=== PATIENT | female | born 1980 ===

== ENCOUNTER 2016-06-25 09:36 | Emergency (ER) | payer SELFPAY ==
[2016-06-25 10:11] VITALS: RESP 20; O2SAT 98
--- NOTE | 2016-06-25 10:41 | ED PDOC ---
HPI: Back Time Seen by Provider: 06/25/16 10:14 Chief Complaint (Nursing): Back Pain Chief Complaint (Provider): Low back pain for 5 days History Per: Patient History/Exam Limitations: no limitations Onset/Duration Of Symptoms: Days Current Symptoms Are (Timing): Still Present Full Body Front + Back: 1 - Pain Description Of Injury (Context): None Additional Complaint(s): No radiation of pain. No numbness/tingling. Pt denies fever/chills. No bladder or bowel incontinence. Pt took tylenol yesterday but it did not help. No similar pain in the past. No urinary symptoms. Past Medical History Reviewed: Historical Data, Nursing Documentation, Vital Signs Vital Signs: Last Vital Signs Temp 98.1 F 06/25/16 10:06 Pulse 70 06/25/16 10:06 Resp 20 06/25/16 10:06 BP 150/90 06/25/16 10:06 Pulse Ox 98 06/25/16 10:06 - Medical History PMH: Back Problems - Surgical History Surgical History: (x 1) - Family History Family History: States: Unknown Family Hx - Immunization History Hx Tetanus Toxoid Vaccination: No Hx Influenza Vaccination: No Hx Pneumococcal Vaccination: No - Home Medications Home Medications: Ambulatory Orders Medication Instructions Recorded Cyclobenzaprine [Flexeril] 10 mg PO Q8 PRN #15 tab 09/04/15 Ibuprofen [Motrin] 600 mg PO Q6 PRN #15 tab 09/04/15 Cyclobenzaprine [Cyclobenzaprine 10 mg PO BID #14 tab 12/23/15 HCl] Ibuprofen [Motrin] 400 mg PO Q6 #30 tab 12/23/15 Naproxen 1 tab PO BID PRN #14 tab 12/27/15 Cyclobenzaprine [Cyclobenzaprine 10 mg PO Q8H PRN #12 tab 06/25/16 HCl] Ibuprofen [Motrin Tab] 800 mg PO Q6H PRN #20 tab 06/25/16 - Allergies Allergies/Adverse Reactions: Allergies Allergy/AdvReac Type Severity Reaction Status Date / Time No Known Allergies Allergy Verified 06/25/16 10:06 Review of Systems ROS Statement: Except As Marked, All Systems Reviewed And Found Negative Respiratory: Negative for: Cough Musculoskeletal: Positive for: Back Pain Physical Exam - Reviewed Nursing Documentation Reviewed: Yes Vital Signs Reviewed: Yes - Physical Exam Appears: Positive for: Well, Non-toxic, No Acute Distress Head Exam: Positive for: ATRAUMATIC, NORMAL INSPECTION, NORMOCEPHALIC Skin: Positive for: Normal Color, Warm, DRY Eye Exam: Positive for: Normal appearance ENT: Positive for: Normal ENT Inspection Neck: Positive for: Normal, Painless ROM Cardiovascular/Chest: Positive for: Regular Rate, Rhythm Respiratory: Positive for: Normal Breath Sounds. Negative for: Accessory Muscle Use Gastrointestinal/Abdominal: Positive for: Normal Exam, Bowel Sounds, Soft. Negative for: Tenderness Back: Positive for: Normal Inspection, Vertebral Tenderness (T-spine and L- spine ). Negative for: Muscle Spasm Extremity: Positive for: Normal ROM. Negative for: Tenderness, Deformity, Swelling Neurologic/Psych: Positive for: Alert, Oriented - ECG O2 Sat by Pulse Oximetry: 98 Pulse Ox Interpretation: Normal Medical Decision Making Medical Decision Making: No acute finding on x-ray Pt reports feeling better. Disposition - Clinical Impression Clinical Impression: Back pain - Patient ED Disposition Is Patient to be Admitted: No Counseled Patient/Family Regarding: Diagnosis, Need For Followup, Rx Given - Disposition Referrals: [facility] [Outside] Disposition: Routine/Home Disposition Time: 13:45 Condition: FAIR Prescriptions: Cyclobenzaprine [Cyclobenzaprine HCl] 10 mg PO Q8H PRN #12 tab PRN Reason: Muscle Spasm Ibuprofen [Motrin Tab] 800 mg PO Q6H PRN #20 tab PRN Reason: Pain Instructions: Back Pain (ED) Forms: [facility] ED School/Work Excuse Print Language: EAST [place]
--- NOTE | 2016-06-25 13:05 | RAD ---
HISTORY: back pain, no trauma COMPARISON: No prior. FINDINGS: BONES: No acute compression fractures however there appear to be a few localized chronic appearing fish-mouth endplate deformities involving the T5, T4 and to a lesser degree T3 and T6 segments. There is a minor - subclinical levoscoliosis possibly due to side bending or muscle spasm. DISC SPACES: Mild multilevel degenerative spondylosis. Changes include mild disc space narrowing with endplate eburnation and small anterolateral osteophyte formation. SOFT TISSUES: Paraspinal soft tissues appear grossly unremarkable so far as can be seen. OTHER FINDINGS: None. IMPRESSION: No acute fractures however there does appear to be a few tiny chronic appearing fish-mouth localized endplate deformities involving the T5, T4 and to a lesser degree T3 and T6 segments. . Mild multilevel degenerative spondylosis.
--- NOTE | 2016-06-25 13:06 | RAD ---
PROCEDURE: Radiographs of the Lumbar Spine. HISTORY: pain, no trauma COMPARISON: No prior. FINDINGS: BONES: No acute compression fractures no retropulsed fragments. . Vertebral bodies exhibit relatively normal stature. Pedicles appear intact There is very subtle on subclinical dextroscoliosis possibly due to some side bending or muscle spasm DISC SPACES: There the minor posterior disc space narrowing seen at the L5-S1 level and to a lesser degree the remaining levels. Disc space heights are otherwise maintained. Very tiny early marginal anterior osteophyte formation also seen at a few levels the. OTHER FINDINGS: None. IMPRESSION: No acute fractures. Very minor multilevel degenerative spondylosis.
[2016-06-25 13:58] VITALS: BP 110/70; PULSE 74; TEMP 98
== END 2016-06-25 13:58 | disposition home or self-care (01) ==
LOC: H.ER 09:36
DX: M54.5 Low back pain (principal)

== ENCOUNTER 2016-08-30 13:21 | Emergency (ER) | payer SELFPAY ==
[2016-08-30 13:31] VITALS: BP 130/91; PULSE 73; RESP 18; TEMP 98.3; O2SAT 100
--- NOTE | 2016-08-30 13:40 | ED PDOC ---
HPI: Abdomen Time Seen by Provider: 08/30/16 13:34 Chief Complaint (Nursing): Abdominal Pain History Per: Patient (Right flank and RUQ abd pain x 2 days. Denies NVD. No fever. No urinary sxs.) Onset/Duration Of Symptoms: Days (2) Current Symptoms Are (Timing): Intermittent Episodes Severity: Mild Pain Scale Rating Of: 3 Location Of Pain/Discomfort: RUQ Quality Of Discomfort: Cramping Associated Symptoms: denies: Fever, Vomiting, Urinary Symptoms Exacerbating Factors: None Alleviating Factors: None Past Medical History Vital Signs: Last Vital Signs Temp 98.3 F 08/30/16 13:28 Pulse 73 08/30/16 13:28 Resp 18 08/30/16 13:28 BP 130/91 H 08/30/16 13:28 Pulse Ox 100 08/30/16 13:40 - Medical History PMH: Back Problems - Surgical History Surgical History: (x 1) - Family History Family History: States: Unknown Family Hx - Immunization History Hx Tetanus Toxoid Vaccination: No Hx Influenza Vaccination: No Hx Pneumococcal Vaccination: No - Home Medications Home Medications: Ambulatory Orders Medication Instructions Recorded Cyclobenzaprine [Flexeril] 10 mg PO Q8 PRN #15 tab 09/04/15 Ibuprofen [Motrin] 600 mg PO Q6 PRN #15 tab 09/04/15 Cyclobenzaprine [Cyclobenzaprine 10 mg PO BID #14 tab 12/23/15 HCl] Ibuprofen [Motrin] 400 mg PO Q6 #30 tab 12/23/15 Naproxen 1 tab PO BID PRN #14 tab 12/27/15 Cyclobenzaprine [Cyclobenzaprine 10 mg PO Q8H PRN #12 tab 06/25/16 HCl] Ibuprofen [Motrin Tab] 800 mg PO Q6H PRN #20 tab 06/25/16 Famotidine [Pepcid] 20 mg PO Q12 #20 tab 08/30/16 - Allergies Allergies/Adverse Reactions: Allergies Allergy/AdvReac Type Severity Reaction Status Date / Time No Known Allergies Allergy Verified 08/30/16 13:27 Review of Systems ROS Statement: Except As Marked, All Systems Reviewed And Found Negative Constitutional: Negative for: Fever Gastrointestinal: Positive for: Abdominal Pain. Negative for: Nausea, Vomiting , Diarrhea Genitourinary Female: Negative for: Dysuria, Frequency Musculoskeletal: Positive for: Back Pain Physical Exam - Reviewed Nursing Documentation Reviewed: Yes Vital Signs Reviewed: Yes - Physical Exam Appears: Positive for: Non-toxic, No Acute Distress Head Exam: Positive for: ATRAUMATIC, NORMAL INSPECTION, NORMOCEPHALIC Skin: Positive for: Normal Color, Warm, DRY Eye Exam: Positive for: EOMI, Normal appearance, PERRL ENT: Positive for: Normal ENT Inspection Neck: Positive for: Normal, Painless ROM Cardiovascular/Chest: Positive for: Regular Rate, Rhythm Respiratory: Positive for: CNT, Normal Breath Sounds Gastrointestinal/Abdominal: Positive for: Bowel Sounds, Soft, Tenderness (RUQ and right flank area) Back: Positive for: Normal Inspection Extremity: Positive for: Normal ROM Neurologic/Psych: Positive for: Alert, Oriented - Laboratory Results Result Diagrams: 08/30/16 13:45 08/30/16 13:45 - ECG O2 Sat by Pulse Oximetry: 100 Disposition - Clinical Impression Clinical Impression: Gastritis - Patient ED Disposition Is Patient to be Admitted: No Counseled Patient/Family Regarding: Studies Performed, Diagnosis, Need For Followup, Rx Given - Disposition Referrals: [facility] [Outside] Disposition: Routine/Home Disposition Time: 15:19 Condition: FAIR Prescriptions: Famotidine [Pepcid] 20 mg PO Q12 #20 tab Instructions: Gastritis (ED)
[2016-08-30 13:58] LABS: BASO # 0.1 K/uL (0.0-0.2); BASO % 0.7 % (0.0-2.0); EOS # 0.1 K/uL (0.0-0.7); EOS % 1.4 % (0.0-4.0); HEMATOCRIT 39.1 % (34.0-47.0); LYMPH # 2.4 K/uL (1.0-4.3); LYMPH % 28.2 % (20.0-40.0); MEAN CELL VOLUME 88.1 fl (81.0-99.0); MEAN CORPUSCULAR HEMOGLOBIN 29.6 pg (27.0-31.0); MEAN CORPUSCULAR HGB CONC 33.6 g/dL (33.0-37.0); MEAN PLATELET VOLUME 8.3 fl (7.2-11.7); MONO # 0.6 K/uL (0.0-0.8); MONO % 7.5 % (0.0-10.0); NEUT # 5.3 K/uL (1.8-7.0); NEUT % 62.2 % (50.0-75.0); NRBC % 0.1 % (0.0-0.0); RED CELL DISTRIBUTION WIDTH 13.6 % (11.5-14.5); WHITE BLOOD COUNT 8.5 K/uL (4.8-10.8)
[2016-08-30 14:13] LABS: ALB/GLOB RATIO 1.2 (1.0-2.1); ALKALINE PHOSPHATASE 95 U/L (38-126); ALT/SGPT 26 U/L (9-52); AST/SGOT 24 U/L (14-36); BILIRUBIN,TOTAL 0.3 mg/dl (0.2-1.3); CALCIUM 9.2 mg/dL (8.4-10.2); CARBON DIOXIDE 24 mmol/L (22-30); CHLORIDE 104 mmol/L (98-107); GFR AFRICAN-AMERICAN > 60; GLUCOSE,RANDOM 87 mg/dL (65-105); POTASSIUM 4.3 MMOL/L (3.6-5.0); SODIUM 139 mmol/l (132-148); TOTAL PROTEIN 8.1 G/DL (6.3-8.2)
[2016-08-30 14:15] LABS: BLOOD UREA NITROGEN 14 mg/dl (7-17)
--- NOTE | 2016-08-30 14:41 | US ---
HISTORY: RUQ pain COMPARISON: None. TECHNIQUE: Sonographic evaluation of the right upper quadrant of the abdomen. FINDINGS: LIVER: Measures 15.4 cm in length. Normal echogenicity of the liver parenchyma. No mass. No intrahepatic bile duct dilatation. GALLBLADDER: Unremarkable. No gallstones. COMMON BILE DUCT: Measures 4 mm. No stones. No dilatation. PANCREAS: Distal pancreatic body and tail are obscured. The visualized pancreas is unremarkable. RIGHT KIDNEY: Measures 11.8 cm in length. Normal cortical thickness and echogenicity. Upper pole cortical cyst, 1.4 x 1.7 x 1.8 cm associated with punctate calcification. AORTA: No aneurysmal dilatation. IVC: Unremarkable. OTHER FINDINGS: None . IMPRESSION: No evidence of cholelithiasis or cholecystitis. 1.8 cm right upper pole renal cortical cyst with punctate mural calcification.
== END 2016-08-30 15:51 | disposition home or self-care (01) ==
LOC: H.ER 13:21
DX: K29.70 Gastritis, unspecified, without bleeding (principal)

== ENCOUNTER 2016-09-16 11:19 | Emergency (ER) | payer OTHER, SELFPAY ==
[2016-09-16 11:26] VITALS: BMI 32.1
[2016-09-16 11:29] VITALS: BP 114/59; PULSE 73; RESP 18; TEMP 97.9; O2SAT 98
--- NOTE | 2016-09-16 12:11 | ED PDOC ---
HPI: Back Time Seen by Provider: 09/16/16 11:37 Chief Complaint (Nursing): Back Pain Additional Complaint(s): 35F c/o atraumatic right side low back pain for 3 days worse w movement. took ibuprofen and this did help. here for similar sx a couple months ago. denies any red flag sx- fever, urinary difficulty/incont, saddle anesth, weakness/ numbness, IVDA. she denies any other pmh, no meds. Past Medical History Vital Signs: Last Vital Signs Temp 97.9 F 09/16/16 11:27 Pulse 73 09/16/16 11:27 Resp 18 09/16/16 11:27 BP 114/59 L 09/16/16 11:27 Pulse Ox 98 09/16/16 11:27 - Medical History PMH: Back Problems - Surgical History Surgical History: (x 1) - Family History Family History: States: Other - Immunization History Hx Tetanus Toxoid Vaccination: No Hx Influenza Vaccination: No Hx Pneumococcal Vaccination: No - Home Medications Home Medications: Ambulatory Orders Medication Instructions Recorded Cyclobenzaprine [Flexeril] 10 mg PO Q8 PRN #15 tab 09/04/15 Ibuprofen [Motrin] 600 mg PO Q6 PRN #15 tab 09/04/15 Cyclobenzaprine [Cyclobenzaprine 10 mg PO BID #14 tab 12/23/15 HCl] Ibuprofen [Motrin] 400 mg PO Q6 #30 tab 12/23/15 Naproxen 1 tab PO BID PRN #14 tab 12/27/15 Cyclobenzaprine [Cyclobenzaprine 10 mg PO Q8H PRN #12 tab 06/25/16 HCl] Ibuprofen [Motrin Tab] 800 mg PO Q6H PRN #20 tab 06/25/16 Famotidine [Pepcid] 20 mg PO Q12 #20 tab 08/30/16 Acetaminophen [Pain Reliever] 650 mg PO Q6H PRN #20 tablet 09/16/16 - Allergies Allergies/Adverse Reactions: Allergies Allergy/AdvReac Type Severity Reaction Status Date / Time No Known Allergies Allergy Verified 08/30/16 13:27 Review of Systems Constitutional: Negative for: Fever, Chills Cardiovascular: Negative for: Chest Pain Respiratory: Negative for: Cough, Shortness of Breath Gastrointestinal: Negative for: Nausea, Vomiting, Abdominal Pain Genitourinary Female: Negative for: Dysuria, Incontinence Musculoskeletal: Positive for: Back Pain Neurological: Negative for: Weakness, Numbness Physical Exam - Physical Exam Appears: Positive for: Well, Non-toxic Skin: Positive for: Warm, Dry Cardiovascular/Chest: Positive for: Regular Rate, Rhythm Respiratory: Negative for: Accessory Muscle Use Pulses-Dorsalis Pedis (L): 2+ Pulses-Dorsalis Pedis (R): 2+ Gastrointestinal/Abdominal: Positive for: Soft. Negative for: Tenderness Back: Positive for: Normal Inspection, Other (right lumbar paraspinous mm ttp). Negative for: Vertebral Tenderness Extremity: Positive for: Normal ROM. Negative for: Swelling Neurologic/Psych: Positive for: Alert, Oriented, Other (nl strenght in b/l hip/ knee/ankle flex/ext and EHL. DTR symmetric. ). Negative for: Motor/Sensory Deficits - ECG O2 Sat by Pulse Oximetry: 98 Medical Decision Making Medical Decision Making: I informed the pt of her positive preg test and need for OBGYN follow up Disposition - Clinical Impression Clinical Impression: Low back strain, - Disposition Disposition Time: 12:20 Condition: GOOD Additional Instructions: Please follow up with your primary doctor and also your OBGYN regarding your . Return to the ER for any worsening symptoms, problems with urination , fever, numbness, weakness, or for any other concerns. Prescriptions: Acetaminophen [Pain Reliever] 650 mg PO Q6H PRN #20 tablet PRN Reason: Pain, Moderate (4-7) Instructions: Acute Low Back Pain (ED), Back Exercises (ED) Print Language: JAPANESE
== END 2016-09-16 13:14 | disposition home or self-care (01) ==
LOC: H.ER 11:19
DX: M54.5 Low back pain (principal); Z33.1 Pregnant state, incidental

== ENCOUNTER 2016-12-01 10:02 | Emergency (ER) | payer MEDICAID, OTHER ==
--- NOTE | 2016-12-01 10:27 | ED PDOC ---
HPI: Back Time Seen by Provider: 12/01/16 10:06 Chief Complaint (Nursing): Back Pain Chief Complaint (Provider): Back Pain, History Per: Patient History/Exam Limitations: no limitations Onset/Duration Of Symptoms: Days (x2) Current Symptoms Are (Timing): Still Present Additional Complaint(s): Mena is a 36 y/o female who presents to the ED complaining of non-radiating left-sided low back pain for 2 days. No dysuria or fever. Patient is approximately 17 weeks . Denies associated abdominal pain, contractions , vaginal bleeding, and discharge. PMD: Unknown Past Medical History Reviewed: Historical Data, Nursing Documentation, Vital Signs Vital Signs: Last Vital Signs Temp 97 F L 12/01/16 10:18 Pulse 96 H 12/01/16 10:18 Resp 19 12/01/16 10:18 BP 123/66 12/01/16 10:18 Pulse Ox 100 12/01/16 10:18 - Medical History PMH: Back Problems - Surgical History Surgical History: (x 1) - Family History Family History: States: Unknown Family Hx - Immunization History Hx Tetanus Toxoid Vaccination: No Hx Influenza Vaccination: No Hx Pneumococcal Vaccination: No - Home Medications Home Medications: Ambulatory Orders Medication Instructions Recorded Cyclobenzaprine [Flexeril] 10 mg PO Q8 PRN #15 tab 09/04/15 Ibuprofen [Motrin] 600 mg PO Q6 PRN #15 tab 09/04/15 Cyclobenzaprine [Cyclobenzaprine 10 mg PO BID #14 tab 12/23/15 HCl] Ibuprofen [Motrin] 400 mg PO Q6 #30 tab 12/23/15 Naproxen 1 tab PO BID PRN #14 tab 12/27/15 Cyclobenzaprine [Cyclobenzaprine 10 mg PO Q8H PRN #12 tab 06/25/16 HCl] Ibuprofen [Motrin Tab] 800 mg PO Q6H PRN #20 tab 06/25/16 Famotidine [Pepcid] 20 mg PO Q12 #20 tab 08/30/16 Acetaminophen [Pain Reliever] 650 mg PO Q6H PRN #20 tablet 09/16/16 Acetaminophen [Acetaminophen Extra 1,000 mg PO Q8 #20 tablet 12/01/16 Strength] - Allergies Allergies/Adverse Reactions: Allergies Allergy/AdvReac Type Severity Reaction Status Date / Time No Known Allergies Allergy Verified 08/30/16 13:27 Review of Systems ROS Statement: Except As Marked, All Systems Reviewed And Found Negative Constitutional: Negative for: Fever Gastrointestinal: Negative for: Abdominal Pain (or contractions) Genitourinary Female: Negative for: Dysuria, Vaginal Discharge, Vaginal Bleeding Musculoskeletal: Positive for: Back Pain (left, lower) Physical Exam - Reviewed Nursing Documentation Reviewed: Yes Vital Signs Reviewed: Yes - Physical Exam Appears: Positive for: Well, Non-toxic, No Acute Distress Head Exam: Positive for: ATRAUMATIC, NORMAL INSPECTION, NORMOCEPHALIC Skin: Positive for: Normal Color, Warm, Dry Eye Exam: Positive for: EOMI, Normal appearance, PERRL Neck: Positive for: Normal, Painless ROM, Supple Cardiovascular/Chest: Positive for: Regular Rate, Rhythm. Negative for: Murmur Respiratory: Positive for: Normal Breath Sounds. Negative for: Respiratory Distress Gastrointestinal/Abdominal: Positive for: Soft (Gravid). Negative for: Tenderness Back: Positive for: Other (Left lower back tenderness). Negative for: Vertebral Tenderness Extremity: Positive for: Normal ROM, Capillary Refill (< 2 sec). Negative for: Pedal Edema, Deformity Neurologic/Psych: Positive for: Alert, Oriented. Negative for: Motor/Sensory Deficits - Laboratory Results Result Diagrams: 12/01/16 10:45 - ECG O2 Sat by Pulse Oximetry: 100 (RA) Pulse Ox Interpretation: Normal Medical Decision Making Medical Decision Making: Time: 10:17 Initial Plan: --CBC w/ differential --Beta HCG quantitative --Urine dipstick --Urine culture --Given Tylenol PO --Pending renal US & US OB limited Time: 10:50 --[place] [address].00 Time: 13:26 Renal US: FINDINGS: RIGHT KIDNEY: Measures: 5.8 x 7.1 x 12.2 cm. Normal in size, contour and echogenicity. No stone, solid mass lesion or hydronephrosis visualized. LEFT KIDNEY: Measures: 5.8 x 6 x 12.6 cm. Normal in size, contour and echogenicity. No stone, solid mass lesion or hydronephrosis visualized. OTHER FINDINGS: None. IMPRESSION: Unremarkable renal sonogram. Time: 13:31 US : FINDINGS: Variable presentation. Posterior Placenta. No evidence of abruption or previa Gestational age derived from LMP 17 weeks THEODORE based on LMP 05/11/2017. Gestational age derived from the following biometric parameters 18 weeks . THEODORE based on biometry 05/04/2017. Biparietal diameter 4.05 cm Head [id number] cm Abdominal circumference 12.85 cm Femur length 2.59 cm Estimated weight 223.91 g Calculated cardiac rate 139 beats per min. Closed cervix measuring 4.08 cm IMPRESSION: Eighteen weeks live intrauterine gestation. Gestational concordance documented. No acute findings related to/accounting for the clinical presentation. --Patient reports marked improvement in symptoms Scribe Attestation: Documented by Iqra Sweeney, acting as a scribe for See Schroeder MD Provider Scribe Attestation: All medical record entries made by the Scribe were at my direction and personally dictated by me. I have reviewed the chart and agree that the record accurately reflects my personal performance of the history, physical exam, medical decision making, and the department course for this patient. I have also personally directed, reviewed, and agree with the discharge instructions and disposition. Disposition - Clinical Impression Clinical Impression: Low back strain - Patient ED Disposition Is Patient to be Admitted: No - Disposition [facility]errals[facility] [[facility]] Disposition: Routine/Home Disposition Time: 13:55 Condition: FAIR Prescriptions: Acetaminophen [Acetaminophen Extra Strength] 1,000 mg PO Q8 #20 tablet Instructions: Back Pain (ED) Forms: [employer] (Romansh)
[2016-12-01 10:30] VITALS: TEMP 97; O2SAT 100
[2016-12-01 11:00] LABS: BASO % 0.3 % (0.0-2.0); EOS # 0.2 K/uL (0.0-0.7); EOS % 1.6 % (0.0-4.0); HEMATOCRIT 37.1 % (34.0-47.0); LYMPH # 1.9 K/uL (1.0-4.3); LYMPH % 14.4 % (20.0-40.0); MEAN CORPUSCULAR HEMOGLOBIN 29.7 pg (27.0-31.0); MEAN CORPUSCULAR HGB CONC 33.4 g/dL (33.0-37.0); MEAN PLATELET VOLUME 8.1 fl (7.2-11.7); MONO % 7.5 % (0.0-10.0); NEUT # 9.8 K/uL (1.8-7.0); NEUT % 76.2 % (50.0-75.0); RED CELL DISTRIBUTION WIDTH 13.2 % (11.5-14.5); WHITE BLOOD COUNT 12.9 K/uL (4.8-10.8)
--- NOTE | 2016-12-01 13:27 | US ---
PROCEDURE: Ultrasound of the Kidneys HISTORY: left flank pain COMPARISON: None available. TECHNIQUE: Sonogram of the kidneys. FINDINGS: RIGHT KIDNEY: Measures: 5.8 x 7.1 x 12.2 cm. Normal in size, contour and echogenicity. No stone, solid mass lesion or hydronephrosis visualized. LEFT KIDNEY: Measures: 5.8 x 6 x 12.6 cm. Normal in size, contour and echogenicity. No stone, solid mass lesion or hydronephrosis visualized. OTHER FINDINGS: None. IMPRESSION: Unremarkable renal sonogram.
--- NOTE | 2016-12-01 13:37 | US ---
PROCEDURE: ultrasound HISTORY: LEFT FLANK PAIN COMPARISON: December 01, 2016. Renal ultrasound reported separately.. TECHNIQUE: Standard protocol for this study/examination. FINDINGS: Variable presentation. Posterior Placenta. No evidence of abruption or previa Gestational age derived from LMP 17 weeks THEODORE based on LMP 05/11/2017. Gestational age derived from the following biometric parameters 18 weeks . THEODORE based on biometry 05/04/2017. Biparietal diameter 4.05 cm Head [id number] cm Abdominal circumference 12.85 cm Femur length 2.59 cm Estimated weight 223.91 g Calculated cardiac rate 139 beats per min. Closed cervix measuring 4.08 cm IMPRESSION: Eighteen weeks live intrauterine gestation. Gestational concordance documented. No acute findings related to/accounting for the clinical presentation.
[2016-12-01 14:13] VITALS: BP 120/70; PULSE 88; RESP 18
== END 2016-12-01 14:07 | disposition home or self-care (01) ==
LOC: H.ER 10:02
DX: M54.9 Dorsalgia, unspecified (principal); Z3A.18 18 weeks gestation of pregnancy; O26.892 Other specified pregnancy related conditions, second trimester

== ENCOUNTER 2017-04-03 15:50 | Emergency (ER) | payer MEDICAID ==
[2017-04-03 16:16] VITALS: BMI 38.5
[2017-04-03 18:10] LABS: SQUAMOUS EPITHIAL 2 /hpf (0-5); URINE BACTERIA OCC (<OCC); URINE BILIRUBIN NEGATIVE (NEGATIVE); URINE BLOOD NEGATIVE (NEGATIVE); URINE CLARITY CLOUDY (Clear); URINE COLOR YELLOW (YELLOW); URINE GLUCOSE (UA) NEG (Normal); URINE LEUKOCYTE ESTERASE NEG Leu/uL (Negative); URINE NITRATE NEGATIVE (NEGATIVE); URINE PROTEIN NEGATIVE (NEGATIVE); URINE UROBILINOGEN 0.2-1.0 mg/dL (0.2-1.0)
--- NOTE | 2017-04-03 18:29 | OBHP ---
Datetime: 04/03/2017 16:27 IP Adm Impression: , intrauterine ; No Active Labor IP Chief Complaint Other: pelvic pain IP Admit Plan: Observation/Evaluation; Discharge home Admit Comment, IP Provider: 36 yo IUP 36 weeks presents today c/o low abdominal pain since 3 days ago, pt also notice change in the urine color and urinary frequency in the last 2 days. no lof, ctx,VB, +FM. Denies nausea, vomiting, chest pain, sob no recent trauma or injury. PNC: [facility] PObH: NVD x2, x1 2010. PGynH: none PMH: none PSH: none FMH: denies Meds: vits NKDA. Denies tobacco,etoh or drugs use. VS: wnl MELISSA no acute distress CVS: normal s1, s2, no murmur Lungs: cta, no wheezing Abd: gravid Back: -CVAT No edema Pelvic: closed/0/-3 A/P: 36 yo IUP 36 weeks with low abd pain and urinary frequency. Observe UA wnl Discharge home Case discussed with Dr Green, OB manager transfusion hospitalist. Angelica Gonzalez PGY1 The patient was seen with the resident and I agree with the note Pelvic Type - PN: Adequate Extremities - PN: Normal Abdomen - PN: Normal Back - PN: Normal Breast - PN: Normal Lungs - PN: Normal Heart - PN: Normal Thyroid - PN: Normal Neurologic - PN: Normal HEENT - PN: Normal General - PN: Normal FHR - Baseline A Provider: 144 EGA AdmitDate IP: 35.4 Vital Signs Provider: Reviewed IP Chief Complaint: Other NICHD Variability Prov Fetus A: Moderate 6-25bpm NICHD Accel Fetus A IP Provider: [id number] FHR Category Provider Fetus A: Category I NICHD Decel Fetus A IP Provider: None Dilatation, Provider: 0 Effacement, Provider: 0 Station, Provider: -3 Genitourinary Exam: Normal DTRs - PN: Normal
[2017-04-06 00:30] VITALS: BP 97/53; PULSE 66; RESP 20; TEMP 97
== END 2017-04-03 18:19 | disposition home or self-care (01) ==
LOC: H.EROB2 15:50
DX: O26.93 Pregnancy related conditions, unspecified, third trimester (principal); R10.2 Pelvic and perineal pain; R35.0 Frequency of micturition; Z3A.36 36 weeks gestation of pregnancy; Z87.59 Personal history of other complications of pregnancy, childbirth and the puerperium

== ENCOUNTER 2017-04-24 01:06 | Inpatient (IN) | payer MEDICAID ==
[2017-04-24] MEDS: Lactated Ringer's 1,000 ML IV SCH ×4 (01:44→19:01)
[2017-04-24] MEDS ORDERED: ceFAZolin 2 GM in Sodium Chloride 0.9% 100 ML IVPB ONE (02:23)
[2017-04-24] MEDS ORDERED: Oxytocin 30 UNITS in Sodium Chloride 0.9% 500 ML IV ONE (02:29)
[2017-04-24 02:52] LABS: BASO % 0.2 % (0.0-2.0); EOS # 0.1 K/uL (0.0-0.7); EOS % 0.8 % (0.0-4.0); HEMOGLOBIN 12.7 g/dL (12.0-16.0); LYMPH # 2.1 K/uL (1.0-4.3); LYMPH % 13.9 % (20.0-40.0); MEAN CELL VOLUME 85.5 fl (81.0-99.0); MEAN CORPUSCULAR HEMOGLOBIN 28.4 pg (27.0-31.0); MEAN CORPUSCULAR HGB CONC 33.1 g/dL (33.0-37.0); MEAN PLATELET VOLUME 8.8 fl (7.2-11.7); MONO # 0.9 K/uL (0.0-0.8); MONO % 6.3 % (0.0-10.0); NEUT # 11.8 K/uL (1.8-7.0); NEUT % 78.8 % (50.0-75.0); RBC 4.48 Mil/uL (3.80-5.20); RED CELL DISTRIBUTION WIDTH 14.5 % (11.5-14.5)
[2017-04-24] MEDS ORDERED: Lactated Ringer's 1,000 ML IV SCH (03:00)
[2017-04-24] MEDS ORDERED: ceFAZolin IV 2 gm in Dextrose 2 GM/50 ML BAG IVPB ONE ×2 (04:29→06:30)
[2017-04-24] MEDS ORDERED: Morphine 1 mg/ml preservative-free Inj(Duramorph) ONE (04:51)
[2017-04-24] MEDS ORDERED: Phenylephrine 10 mg/ml Inj ONE (04:51)
[2017-04-24] MEDS ORDERED: ePHEDrine 50 mg/ml Inj ONE (05:09)
[2017-04-24] MEDS ORDERED: DiphenhydrAMINE 50 mg/ml Inj IVP PRN ×2 (05:47→09:05)
[2017-04-24] MEDS ORDERED: Oxycodone/Acetaminophen 5/325 mg Tab PO PRN (06:01)
--- NOTE | 2017-04-24 06:07 | OBADHP ---
Datetime: 04/24/2017 02:32 Admit Comment, IP Provider: 36 yo IUP 38.5 weeks presents c/o painful ctx since last night, no lof,VB, +FM. Denies nausea, vomiting, chest pain, sob no recent trauma or injury. Patient had a pr evious c/section and desire BTL. She is scheduled for 04/29/17. PNC: [facility] PObH: NVD x2, x1 2010. PGynH: none PMH: none PSH: none FMH: denies Meds: vits NKDA. Denies tobacco,etoh or drugs use. VS: wnl VE: /-2 FM: 140/mod rabia/15 x 15/cat I/no decel A/P: 36 yo IUP 38.5 wks, admitted for repeat c/section. Initiated c/section protocol Continuos /maternal monitoring. The procedure of Section, risks and benefits were d/w the patient. Questions from Pt were answered. Consents obtained. Case discussed with Dr Lopez, OB clinical documentation manager hospitalist. [place] PGY1 . Attending Note: Pt seen and examined with Resident and I agree with the above. Pelvic Type - PN: Adequate Extremities - PN: Normal Abdomen - PN: Normal Back - PN: Normal Breast - PN: Normal Lungs - PN: Normal Heart - PN: Normal Thyroid - PN: Normal Neurologic - PN: Normal HEENT - PN: Normal General - PN: Normal FHR - Baseline A Provider: 140 Membranes, Provider: Bulging Vital Signs Provider: Reviewed IP Chief Complaint: Uterine contractions NICHD Variability Prov Fetus A: Moderate 6-25bpm NICHD Accel Fetus A IP Provider: [id number] FHR Category Provider Fetus A: Category I NICHD Decel Fetus A IP Provider: None Dilatation, Provider: 3 Effacement, Provider: 90 Station, Provider: -3 Genitourinary Exam: Normal DTRs - PN: Normal EGA AdmitDate IP: 38.4 IP Adm Impression: Term, intrauterine IP Admit Plan: Admit to unit; Initiate Section protocol Datetime: 04/03/2017 16:27 IP Chief Complaint Other: pelvic pain
--- NOTE | 2017-04-24 06:12 | OBDS ---
DELIVERY PERSONNEL Delivery Doctor: Jewel Lopez MD Home Administrator: Billy Reinoso RN, Anesthesiologist: Robin Belcher MD Resident: Renetta García MD MATERNAL INFORMATION Delivery Anesthesia: Spinal Medications in Delivery: Pitocin Placenta Cultured: No Maternal Complications: None Provider Comments: Uncomplicated repeat section with bilateral tubal ligation resulting in the delivery of a viable female infant with BW of 2790gms and scores of 9 and 9. Nuchal cord X2 undone after delivery from the uterine cavity. Bilateral tubal ligation performed. LABOR SUMMARY EDC: 05/04/2017 00:00 No. Babies in Womb: 1 Attempted: No LABOR INFORMATION Reason for Induction: Not Applicable Oxytocin: N/A Group B Beta Strep: Negative Antibiotics # of Doses: 1 Antibiotics Time of Last Dose: Ancef 2Grams at 0447 Steroids Given: None Reason Steroids Not Administered: Not Applicable MEMBRANES Membranes Rupture Method: Spontaneous Rupture of Membranes: 04/24/2017 04:20 Length of Rupture (hrs): 0.97 Amniotic Fluid Color: Clear Amniotic Fluid Amount: Large Amniotic Fluid Odor: Normal STAGES OF LABOR Stage 3 hrs: 0 Stage 3 min: 1 CSECTION DELIVERY Primary Indication: Repeat Elective CSection Urgency: Elective CSection Incidence: Repeat Labor: Labor CSection Incision: Lower Uterine Transverse Sterilization Procedure: Becky Other Sterilization Procedure: Bilateral Tubal Ligation Uterine Closure: Double-layer closure BABY A INFORMATION Infant Delivery Date/Time: 04/24/2017 05:18 Method of Delivery: Born in Route : No : N/A Forceps: N/A Vacuum Extraction: N/A Shoulder Dystocia : No SHOULDER DYSTOCIA BABY A Delivery Date/Time: 04/24/2017 05:18 PRESENTATION/POSITION BABY A Presentation: Cephalic Cephalic Presentation: Vertex Breech Presentation: N/A PLACENTA INFORMATION BABY A Placenta Delivery Time : 04/24/2017 05:19 Placenta Method of Delivery: Expressed Placenta Status: Delivered SCORES BABY A Heart Rate 1 min: >100 bpm Resp Effort 1 min: Good Cry Reflex Irritability 1 min: Cough or Sneeze or Pulls Away Muscle Tone 1 min: Active Motion Color 1 min: Body Pinon, Extremities Blue Resuscitation Effort 1 min: Tactile Stimulation SCORE 1 MIN: 9 Heart Rate 5 min: >100 bpm Resp Effort 5 min: Good Cry Reflex Irritability 5 min: Cough or Sneeze or Pulls Away Muscle Tone 5 min: Active Motion Color 5 min: Body Pinon, Extremities Blue Resuscitation Effort 5 min: N/A SCORE 5 MIN: 9 INFANT INFORMATION BABY A Gestational Age at Delivery: 38.4 Gestational Status: Term Infant Outcome : Liveborn Infant Condition : Stable Infant Sex: Female IDENTIFICATION/MEDS BABY A ID Band Number: [id number] ID Band Location: Left Leg; Left Arm WEIGHT/LENGTH BABY A Infant Birthweight (gms): 2790 Infant Weight (lb): 6 Infant Weight (oz): 2 CORD INFORMATION BABY A No. Cord Vessels: 3 Nuchal Cord : Around Neck x2, Loose Cord Blood Taken: Yes Suction: Mouth; Nose ASSESSMENT BABY A Complications: None Physical Findings at Delivery: Within Normal Limits Infant Respirations: Appears Normal Low Voltage Electrician/ALS Called : No Infant Care By: Saroj Lima RN Transferred To: Remains with Mother
--- NOTE | 2017-04-24 06:17 | PCM.SURG1 ---
Surgeon's Initial Post Op Note - Surgeon's Notes Surgeon: Dr Lopez Generator Assembler: Angelica Gonzalez (Family Practice Resident) Type of Anesthesia: Spinal Anesthesia Administered By: Dr Belcher Pre-Operative Diagnosis: IUP at 38.4wks with Previous Section. Multiparity Requesting Permanent surgical sterilization. Operative Findings: Live female infant BW of 2790gms and scores of 9 and9 , delivered in cephalic presentation, nuchal cord x 2,Fundal placenta, clear amniotic fluid. The uterus as well as both fallopian tubes and ovaries appeared normal. IVFluids- 1000mls. EBL- 500mls. Urine output- 200mls. Post-Operative Diagnosis: Same as preop Diagnosis Operation Performed: Repeat Low Transverse Section. Bilateral tubal ligation via the [place] method Specimen/Specimens Removed: Portions of Rt and Lt fallopian Tubes Estimated Blood Loss: EBL {In ML}: 500 Blood Products Given: N/A Post-Op Condition: Good Date of Surgery/Procedure: 04/24/17 Time of Surgery/Procedure: 06:19
[2017-04-24] MEDS ORDERED: Simethicone 80 mg Chewtab PO SCH (10:00)
--- NOTE | 2017-04-24 11:09 | OBPPN ---
Datetime: 04/24/2017 11:07 PP Pain Prov: Within normal limits PP Nausea Prov: Denies PP Flatus Prov: Yes PP Breasts Prov: Not Done PP Heart Prov: Normal PP Lungs Prov: Normal PP Abdomen/Uterus Prov: Normal PP Lochia Prov: Not Done PP Vulva/Perineum Prov: Not Done PP CVA Tenderness Prov: Normal PP Extremities Prov: Normal PP Impression Prov: Normal progression PP Plan Prov: Continue present management PP Progress Note Prov: Doing well and reports minimal lochia and pain well controlled voiding withou t difficulty Vital signs stable afebrile Uterus firm below the umbilicus Extremities no Homans Ambulate, regular diet, analgesia as needed Vital Signs Provider PP: Reviewed
--- NOTE | 2017-04-24 11:22 | OP ---
PROCEDURE DATE: 04/24/2017 PREOPERATIVE DIAGNOSES: 1. Intrauterine at 38 weeks with history of previous section, in active labor. 2. Multiparity, requesting for permanent desired sterilization. POSTOPERATIVE DIAGNOSES: 1. Intrauterine at 38 weeks with history of previous section, in active labor. 2. Multiparity, requesting for permanent desired sterilization. PROCEDURES DONE: Repeat low-transverse section and bilateral tubal ligation via the Becky method. SURGEON: Tono Lopez MD. DIRECTOR SECURITY RISK MANAGEMENT: , family practice resident. Derrick Builder for this procedure was needed for exposure of tissues and help in the delivery of the baby. The phlebotomist medical lab assistant remained with the surgery throughout its entire length. TYPE OF ANESTHESIA: Spinal. ANESTHESIA ADMINISTERED BY: Jayden Belcher MD. FINDINGS: A live female infant with birthweight of 2790 g and scores of 9 in the first and fifth minutes respectively. Baby was delivered in cephalic presentation. Baby had nuchal cord x2 and was unwound before delivery. Placenta was fundal with clear amniotic fluid. The uterus as well as both fallopian tubes and ovaries bilaterally appeared normal. IV FLUID INTAKE: 1000 mL. ESTIMATED BLOOD LOSS: 500 mL. URINE OUTPUT: 200 mL of clear urine. COMPLICATIONS: There were no complications. SPECIMENS REMOVED: Portions of right and left fallopian tubes. DESCRIPTION OF PROCEDURE: After obtaining informed consent, the patient was sent to the OR with IV running and Apodaca catheter in place. The patient was sat on the OR table and after adequate spinal anesthesia, was placed in the supine position with a left lateral tilt. The patient was then prepped and draped in the usual sterile fashion. A Pfannenstiel skin incision was made using the scalpel through the old Pfannenstiel incisional scar, about 2 cm from the pubic symphysis. This incision was carried through the subcutaneous tissues until the rectus fascia was identified. Using a Bovie device, a transverse incision was made in the fascia and the incision was extended to both sides by means of a blunt dissection and sharp dissection using Horta scissors. The rectus fascia was from the underlying rectus muscles, both superiorly and inferiorly by means of a blunt dissection and sharp dissection. The rectus muscles were in the midline to expose the peritoneum, which was tented between two Nikki clamps and carefully entered using Metzenbaum scissors and made good visualization of the bladder. Once the abdominal cavity was entered, the vesicouterine fold of peritoneum was identified. This was incised in a transverse fashion and then retracted inferiorly to expose the lower uterine segment. A lower uterine segment incision was made using the scalpel and this incision was carried through the myometrial layers until the amniotic membranes were identified. The incision was then extended to both sides in a blunt fashion using the fingers. Amniotic membranes were ruptured with a pickup forceps and the baby, which was in cephalic presentation, was delivered. Umbilical cord around the baby's neck was undone and the umbilical cord was clamped and cut and the baby was given to the nurse. Umbilical cord blood was also obtained for analysis and the placenta was manually removed from the uterine cavity. The uterus was brought out of the abdominal cavity and then the cavity was cleaned of all debris using dry laparotomy pads. The uterine incision was then closed in 2 layers using Vicryl #0. The first layer in a running locked fashion and the second layer in a running fashion imbricating the first layer. Hemostasis was noted. Attention was then turned to the fallopian tube where a loop of about 4 cm was made with a Pako. The portions of loop below, at the base of the loop were doubly ligated using 2-0 plain catgut. These were done bilaterally and the portion of the tubes above the areas of ligation were excised for pathological evaluation. Hemostasis on the site of tubal ligation was assured. Once this had been completed, irrigation of the pelvis was performed with warm normal saline to remove extra clots from the abdomen. The uterus was returned into the abdominal cavity after assuring hemostasis. The tubal ligation points were re-inspected before closure of the abdominal wall, which was performed in layers with 2-0 Vicryl for the peritoneum and the rectus muscles. The rectus fascia was re-approximated using Vicryl #0. The subcutaneous tissues were brought together using #2-0 plain. The skin was closed in a subcuticular fashion using #4-0 Vicryl. All counts of instruments, laparotomy pads, and needles used were correct x3 and the patient was sent to the recovery room awake and in stable condition. Tono Lopez MD [facility] # [id number]
[2017-04-24] MEDS: Simethicone 80 mg Chewtab PO SCH ×3 (11:27→23:23)
[2017-04-24] MEDS: Oxycodone/Acetaminophen 5/325 mg Tab PO PRN (23:25)
[2017-04-25] MEDS: Simethicone 80 mg Chewtab PO SCH ×4 (04:50→22:17)
[2017-04-25] MEDS: Oxycodone/Acetaminophen 5/325 mg Tab PO PRN ×4 (04:52→22:17)
[2017-04-25 07:02] LABS: BASO % 0.2 % (0.0-2.0); EOS # 0.1 K/uL (0.0-0.7); EOS % 0.9 % (0.0-4.0); HEMOGLOBIN 11.2 g/dL (12.0-16.0); LYMPH # 2.2 K/uL (1.0-4.3); MEAN CELL VOLUME 84.8 fl (81.0-99.0); MEAN CORPUSCULAR HEMOGLOBIN 29.2 pg (27.0-31.0); MEAN CORPUSCULAR HGB CONC 34.5 g/dL (33.0-37.0); MEAN PLATELET VOLUME 8.5 fl (7.2-11.7); MONO % 8.8 % (0.0-10.0); NEUT # 7.8 K/uL (1.8-7.0); NEUT % 70.1 % (50.0-75.0); RBC 3.82 Mil/uL (3.80-5.20); RED CELL DISTRIBUTION WIDTH 14.6 % (11.5-14.5); WHITE BLOOD COUNT 11.1 K/uL (4.8-10.8)
[2017-04-25] MEDS ORDERED: Oxycodone/Acetaminophen 5/325 mg Tab PO PRN (17:11)
[2017-04-26] MEDS: Simethicone 80 mg Chewtab PO SCH ×4 (05:43→22:34)
[2017-04-26] MEDS: Oxycodone/Acetaminophen 5/325 mg Tab PO PRN (05:44)
--- NOTE | 2017-04-26 12:49 | OBPPN ---
Datetime: 04/26/2017 07:06 PP Pain Prov: Within normal limits PP Nausea Prov: Denies PP Flatus Prov: Yes PP BM Prov: Yes PP Breasts Prov: Not Done PP Heart Prov: Normal PP Lungs Prov: Normal PP Abdomen/Uterus Prov: Normal PP Lochia Prov: Normal PP Vulva/Perineum Prov: Not Done PP CVA Tenderness Prov: Not Done PP Extremities Prov: Normal PP C/S Incision Prov: Normal PP Comments Phys Exam Prov: Fundus firm under umbilicus Incision clean/dry/intact PP Impression Prov: Normal progression PP Plan Prov: Continue present management PP Progress Note Prov: 36 yo s/p and BTL on 04/24/17; POD2. Pt was seen and examine d at bedside this morning; no acute events overnight. Reports mild abdominal pain that is controlled w/ medications. She is ambulating to the bathroom, voiding freely, has passed gas and has had a BM. L ochia similar to menses in volume. Breast and bottle feeding baby. Denies fever, chills, chest pain, shortness of breath, nausea, vomiting, GI upset, pain in calves. Vital Signs: stable Gen: no acute distress CV: S1S2, RRR Resp: clear breath sounds bilaterally; normal resp effort Abdomen: BS+, appropriate tenderness to palpation. Incision clean, dry, intact. Uterus is firm and at the level of the umbilicus. Ext: no edema, calves nontender Neuro/Psych: AAOx3, preserved affect and mood A: 36 yo s/p and BTL, POD2. Pt afebrile, stable, pain well controlled. Doing wel l. P: Encourage ambulation and , and continue with current management for pain. Anticipa myriam discharge tomorrow, 04/27/2017 -[email or web address] Addendum by Dr. Kurtz: I have evaulated the patient independently and I agree with the above IP PP Procedures: None Vital Signs Provider PP: Reviewed Datetime: 04/25/2017 06:16 PP Progress Prov: Not Applicable Vital Signs Provider Details PP: Formula
[2017-04-27] MEDS: Simethicone 80 mg Chewtab PO SCH ×2 (04:43→09:06)
--- NOTE | 2017-04-27 07:35 | OBDCSUM ---
Datetime: 04/27/2017 06:36 Discharged to, Provider: Home Follow up at, Provider: Nii No Disch Instr Activity: Normal activity; May be up to bathroom; May be up for meals; May Shower Disch Instr Diet: Regular Discharge Instructions, Provider: Routine instructions given Discharge Diagnosis, Provider: Term Delivered Discharge Time: 04/27/2017 07:34 Follow up in weeks, Provider: 1 week Contraception discussed, Prov: Yes Disch Activity Restrictions: No exercising; No lifting; No driving; Minimize walking; Minimize stair -climbing; No sexual activity; Nothing in vagina - [place], tampons, douche Discharge Comment, Provider: 36 yo , s/p repeat of viable female at 05:18 on 04/24/17, 2790g, 9/9; pt also had BTL performed. Doing well on POD3. Discharge instructions: Encourage PNV 1 tab PO/day Ibuprofen 600 mg 1 tab Q6h PRN if moderate pain, Percocet 5-325mg Q6hrs if severe pain, Sennokot 1 7.2 mg tab at night for constipation. Ambulate with caution, nothing per vagina for 4-6 weeks, no heavy lifting, avoid stairs. If excess alexa bleeding, or fever without relief from tylenol, go to ED. Follow up at [facility] with your pre-candido provider in 1 week for wound check, and in 4-6 weeks for post- appt. Follow up at preferred pediatrics practice ([place]) within 1 week to establish care for . [email or web address] Contraception after Delivery: Tubal Ligation
--- NOTE | 2017-04-27 07:36 | OBPPN ---
Datetime: 04/27/2017 06:35 PP Pain Prov: Within normal limits PP Nausea Prov: Denies PP Flatus Prov: Yes PP BM Prov: Yes PP Breasts Prov: Not Done PP Heart Prov: Normal PP Lungs Prov: Normal PP Abdomen/Uterus Prov: Normal PP Lochia Prov: Normal PP Vulva/Perineum Prov: Not Done PP CVA Tenderness Prov: Not Done PP Extremities Prov: Normal PP C/S Incision Prov: Normal PP Progress Prov: Normal PP Impression Prov: Normal progression PP Plan Prov: Discharge PP Progress Note Prov: 36 yo s/p and BTL on 04/24/17; POD3. Pt was seen and examine d at bedside this morning; no acute events overnight. Reports mild abdominal pain that is controlled w/ medications, less pain than yesterday. She is ambulating to the bathroom, voiding freely, has pass ed gas and had a BM yesterday. Lochia similar to menses in volume. Breast and bottle feeding baby. D enies fever, chills, chest pain, shortness of breath, nausea, vomiting, GI upset, pain in calves. Gen: no acute distress CV: S1S2, RRR Resp: clear breath sounds bilaterally; normal resp effort Abdomen: BS+, appropriate tenderness to palpation. Incision clean, dry, intact. Uterus is firm and at the level of the umbilicus. Ext: no edema, calves nontender Neuro/Psych: AAOx3, preserved affect and mood A: 36 yo s/p and BTL, POD3. Pt afebrile, stable, pain well controlled. Doing wel l. P: Discharge today -[id number] OB Hospitalist Addendum: Pt seen and examined by me. Agree w/ above. POD 3 s/p Repeat c/s, BTL, doing well. Incision intact w/ steri strips. Discharge home today. (ES) Vital Signs Provider PP: Reviewed
[2017-04-27] MEDS: Oxycodone/Acetaminophen 5/325 mg Tab PO PRN (08:45)
[2017-04-27 22:59] VITALS: BP 133/76; PULSE 78; RESP 20; TEMP 98.2; O2SAT 99
== END 2017-04-27 11:53 | disposition home or self-care (01) | DRG 371 ==
LOC: H.EROB2 01:06 → H.L&D 02:28 → H.OB/GYN 09:05
PROVIDERS: ADMIT Obstetrics & Gynecology; ATTEND Obstetrics & Gynecology
PROC: 10D00Z1 Extraction of Products of Conception, Low, Open Approach (ICD-10-PCS; principal; 2017-04-24)
PROC: 0UB70ZZ Excision of Bilateral Fallopian Tubes, Open Approach (ICD-10-PCS; 2017-04-24)
PROC: 4A1HXCZ Monitoring of Products of Conception, Cardiac Rate, External Approach (ICD-10-PCS; 2017-04-24)
DX: O34.211 Maternal care for low transverse scar from previous cesarean delivery (principal); N85.8 Other specified noninflammatory disorders of uterus; Z37.0 Single live birth; Z3A.38 38 weeks gestation of pregnancy; O69.81X0 Labor and delivery complicated by cord around neck, without compression, not applicable or unspecified; Z30.2 Encounter for sterilization; Z64.1 Problems related to multiparity